=== PATIENT | female | born 1950 | race Caucasian/White ===

== ENCOUNTER 2017-09-14 19:17 | Inpatient (IN) | payer OTHER ==
[~2017-09-14] VITALS: Ht 154.9 cm; Wt 93.0 kg
[~2017-09-14 19:17] MED LIST: ALLEGRA ALLERGY60 MG PO; BACTROBAN NASAL1 GM NS; GLIMEPIRIDE2 MG PO; HIBICLENS118 ML TP; INSPRA25 MG PO; ONGLYZA PO; PEPCID20 MG PO; TARKA 2/1801 BOTTLE PO; XARELTO20 MG PO
[2017-09-14] MEDS ORDERED: TARKA ER 2-2401 EACH PO (19:50)
== END 2017-09-17 20:05 | disposition home or self-care (01) | DRG 690 ==
LOC: ER 19:17 → SEC-K 22:49 → SURG 22:49
DX: N39.0 Urinary tract infection, site not specified (principal); I10 Essential (primary) hypertension; E11.9 Type 2 diabetes mellitus without complications; E66.01 Morbid (severe) obesity due to excess calories; B96.29 Other Escherichia coli [E. coli] as the cause of diseases classified elsewhere

== ENCOUNTER 2017-09-22 07:39 | Day surgery (SDC) | payer OTHER ==
[~2017-09-22 07:39] MED LIST changes: +TARKA ER 2-2401 EACH PO
== END 2017-09-22 13:45 | disposition home or self-care (01) ==
LOC: CIR.AMB 07:39
DX: T83.89XA Other specified complication of genitourinary prosthetic devices, implants and grafts, initial encounter (principal)

== ENCOUNTER 2018-02-01 16:50 | Emergency (ER) | payer OTHER ==
[~2018-02-01] VITALS: Ht 152.4 cm; Wt 89.8 kg
== END 2018-02-01 19:19 | disposition home or self-care (01) ==
LOC: ER 16:50
DX: G51.0 Bell's palsy (principal)